=== PATIENT | female | born 1940 | race Caucasian/White ===

== ENCOUNTER → 2016-12-08 | Outpatient (CLI) | payer OTHER, BC ==
[~2016-12-08] MED LIST: THROMBIN (RECOMBINANT) 5,000 UNIT VIAL TP ONE
== END ==
LOC: FIMAGING 11:48
PROVIDERS: ATTEND Internal Medicine
PROC: 0HBU3ZX Excision of Left Breast, Percutaneous Approach, Diagnostic (ICD-10-PCS; principal; 2016-12-08)
DX: N60.02 Solitary cyst of left breast (principal)
CPT/HCPCS: 19083; G0206

== ENCOUNTER → 2017-03-03 | Outpatient (CLI) | payer OTHER, BC | LOC: CIMAGING 08:12 | DX: Z12.31 Encounter for screening mammogram for malignant neoplasm of breast (principal) | CPT/HCPCS: G0202 ==

== ENCOUNTER → 2018-04-29 | Outpatient (CLI) | payer OTHER, BC | LOC: CIMAGING 10:46 | PROVIDERS: ATTEND Internal Medicine | DX: Z12.31 Encounter for screening mammogram for malignant neoplasm of breast (principal) ==

== ENCOUNTER → 2019-03-02 | Outpatient (CLI) | payer OTHER, BC | LOC: EMCIMAGING 12:10 | PROVIDERS: ATTEND Internal Medicine | DX: Z13.820 Encounter for screening for osteoporosis (principal); M81.0 Age-related osteoporosis without current pathological fracture; R91.1 Solitary pulmonary nodule; J42 Unspecified chronic bronchitis; J43.9 Emphysema, unspecified; K76.89 Other specified diseases of liver; M51.36 Other intervertebral disc degeneration, lumbar region; Z78.0 Asymptomatic menopausal state; Z87.891 Personal history of nicotine dependence; Z86.39 Personal history of other endocrine, nutritional and metabolic disease; Z79.52 Long term (current) use of systemic steroids | CPT/HCPCS: 71250-PN; 77080-PN ==